=== PATIENT | female | born 1995 | race Caucasian/White ===

== ENCOUNTER 2017-08-29 12:45 | Observation (INO) ==
[2017-08-29 13:41] LABS: Bilirubin,Urine Negative (Negative); Blood,Urine Negative (Negative); Clarity,Urine Cloudy (Clear); Color,Urine Yellow (Yellow); Glucose,Urine (UA) Normal (Normal); Ketones,Urine Negative (Negative); Leukocyte Esterase,Urine Negative (Negative); Nitrite,Urine Negative (Negative); Protein,Urine Negative (Neg-Trace); Specific Gravity,Urine 1.013 (1.010-1.025); Urobilinogen,Urine Normal (Normal)
[2017-08-29 13:44] LABS: Bacteria,Urine Few per hpf (None-Few); Hyaline Casts,Urine None Seen per lpf (None-Few); RBC,Urine 0-3 per hpf (0-3); Squamous Epithelial Cell,Urine Many per lpf (None-Few); WBC,Urine 0-3 per hpf (0-3)
--- NOTE | 2017-08-29 13:46 | OB/GYN Progress Note ---
Date of Encounter: 08/29/17 Time of Encounter: 13:44 - Assessment and Plan (1) 24 weeks gestation of Current Visit: Yes Status: Acute (2) Decreased movement Current Visit: Yes Status: Acute tracing appropriate for gestational age Patient states she has felt movement since arrival in triage Patient discharged home with labor and when to return to triage precautions Qualifiers: Fetus number: single or unspecified fetus Trimester: second trimester Qualified Code(s): O36.8120 - Decreased movements, second trimester, not applicable or unspecified Subjective - Subjective Interval history: 24+ weeks gestation presented to triage for decreased movement. Patient states she has not felt the baby move a lot today, had heart tones on on Doppler at home, but remained concerned about no movement so presented to triage for evaluation. Patient with known thick anterior placenta Antepartum ROS: no loss of fluid, no vaginal bleeding, no movement normal , no contractions Objective - Vital Signs Vital Signs: Intake and Output 08/28/17 08/29/17 08/29/17 23:59 07:59 15:59 Other: Weight 74.9 kg Patient Weight 08/29/17 23:59 Weight 74.9 kg - Exam FHR: auscultation normal FHR comments: baseline 145 and appropriate for gestational age. Auscultation: bilateral: normal Abdomen: Present: normal appearance, soft, gravid Comments: - cva tenderness.
[2017-08-29 14:01] LABS: Amphetamine Screen,Urine Negative ng/mL (Cutoff=1000); Barbiturate Screen,Urine Negative ng/mL (Cutoff=200); Benzodiazepines Screen,Urine Negative ng/mL (Cutoff=200); Cannabinoid Screen,Urine Negative ng/mL (Cutoff = 50); Cocaine Screen,Urine Negative ng/mL (Cutoff= 300); Opiate Screen,Urine Negative ng/mL (Cutoff=300); Phencyclidine Screen,Urine Negative ng/mL (Cutoff=25)
== END 2017-08-29 13:54 | disposition home or self-care (01) ==
LOC: 1NENULAB
PROVIDERS: ADMIT Obstetrics & Gynecology; ATTEND Obstetrics & Gynecology

== ENCOUNTER 2017-12-11 08:00 | Inpatient (IN) ==
[2017-12-11] MEDS ORDERED: Ondansetron 4 MG/2 ML VIAL IVP PRN (10:48)
[2017-12-11] MEDS ORDERED: Famotidine 20 MG/2 ML VIAL IVP PRN (10:48)
[2017-12-11] MEDS ORDERED: Naloxone 0.4 MG/ML INJ IVP PRN (10:48)
[2017-12-11] MEDS ORDERED: *HR* Nalbuphine 10 MG/ML AMPUL IVP PRN (10:48)
--- NOTE | 2017-12-11 11:02 | OB/GYN History & Physical ---
Date of Encounter: 12/11/17 Time of Encounter: 11:00 Assessment and Plan (1) and not yet delivered in third trimester Current visit: Yes Status: Acute (2) 39 weeks gestation of Current visit: Yes Status: Acute (3) Abnormal placenta affecting management of mother in third trimester Current visit: Yes Status: Acute (4) Decreased movement affecting management of mother, antepartum Current visit: Yes Status: Acute Qualifiers: Fetus number: single or unspecified fetus Qualified Code(s): O36.8190 - Decreased movements, unspecified trimester, not applicable or unspecified (5) Encounter for elective induction of labor Current visit: Yes Status: Acute Patient will be induced with a Mattson catheter and Cytotec plan is to anticipate vaginal delivery History of Present Illness HPI: Ms. Salazar is a 21 year old female 3 para 0020 at 39-0/7 weeks who presented for induction of labor secondary to term . Patient has had a relatively complicated course except for the fact she has an abnormal placenta is very thick has been followed by maternal medicine recently patient has not been able to feel the baby move pannus of multiple visits to the office and labor and delivery for NSTs patient's anxiety is becoming significantly abnormal to the point that her mother is getting concerned and its a fear that the baby is having problems. We did inform her that because of this it would be best that we discovered ahead and deliver her and have a good outcome. Patient has been having some contractions denies any leaking of fluid or vaginal bleeding. Patient is AB+, GBS negative, rubella positive, Varicella Negative. Past Med Surg Social Fam HX - Past Medical History Source: patient, old records reviewed Medical history: no medical history Psychiatric history: anxiety - Past Surgical History Additional surgical history: D&C. t&a - Social History Smoking Status: Never smoker Smokeless Tobacco Status: No Alcohol use: none Drug use: none Occupational status: employed Current living situation: Home - Independent Activity Level: Independent ambulation Recent Out of Country Travel Within the Last 8 Weeks: No Exposure or Possible Exposure to Illness During Travel: No - Family History Mother Adopted: No Living Status: Still Living Hx Family Cardiac Disorders: No Hx Family Respiratory Disorders: No Hx Family Cancer: No Hx Family GI Disorders: No Hx Family Endocrine Disorder: No Hx Family Neuromuscular Disorders: No Hx Family Neurologic Disorders: No Hx Family HEENT Disorders: No Hx Family Autoimmune Disorders: No - Additional Family History Additional family history: Family history noncontributory Obstetrical History - Pregnancies : 3 Para: 0 Term: 0 : 0 Livin Medications and Allergies Aspirin 1 tab PO DAILY 08/29/17 [History] Vit Calc,Iron,Folic [ Vitamins] 1 tab PO DAILY 08/29/17 [ History] metroNIDAZOLE [Flagyl] 500 mg PO BID 7 Days #14 tablet 09/21/17 [Rx] 3 Allergy/AdvReac Type Severity Reaction Status Date / Time Amoxicillin Allergy See Verified 09/21/17 21:29 Comments Sulfa (Sulfonamide Allergy Swelling Verified 09/21/17 21:29 Antibiotics) of Lip/Tongue/Throat Review of System OB All systems PM: reviewed and no additional remarkable complaints except as stated - Menstruation Menstruation: other (Occasional contractions or decreased movement) Exam - Constitutional Constitutional: well developed, well nourished, no acute distress, average body habitus - HEENT HEENT: EOMI, PERRL, Mucus Membranes Moist - Neck Neck exam: full ROM - Lungs Respiratory exam: CTAB - Cardiovascular Cardiovascular exam: RRR - Abdomen Abdomen: Present: bowel sounds normal, gravid ( heart tones 140s reactive occasional contractions seen) - Cervix Dilation: 2 Effacement: 80 Station: -1 (Mattson catheter placed with 25 g of Cytotec placed vaginally) Results All other labs normal. - VTE Reasons for not Prescribing Prophylaxis: Treatment not Indicated - Low risk for VTE
[2017-12-11 11:14] LABS: Basophils % 0.2 %; Eosinophils % 0.3 %; Hemoglobin 11.3 g/dL (11.5-15.4); Immature Granulocytes % 0.4 % (0-4); Lymphocytes # 1.7 K/mcL (0.6-4.6); Lymphocytes % 14.4 %; Mean Corpuscular HGB Conc 32.3 g/dL (31.6-35.5); Mean Corpuscular Hemoglobin 26.2 pg (28.0-33.3); Mean Platelet Volume 12.8 fL (9.4-12.4); Monocytes # 0.7 K/mcL (0.0-1.3); Platelet Count 224 K/mcL (140-400); Red Blood Count 4.32 M/mcL (3.82-4.97); Red Cell Distribution Width 15.6 % (11.5-14.5); Segmented Neutrophils % 78.7 %
[2017-12-11] MEDS: Ringers Solution, Lactated 1,000 ML IVC SCH ×3 (12:15→18:31)
--- NOTE | 2017-12-11 12:24 | OB Labor Progress Note ---
Date of Encounter: 12/11/17 Time of Encounter: 11:30 Labor Progress Note - Subjective Subjective: Patient's anxiety is beginning to affect issues very nervous but were able to at least keep her, this time she states the contractions at their and she is feeling the baby move - Cervix Cervix: /- Mattson catheter was placed but during the placement she was artificially ruptured and light meconium encountered. 30 mL balloon was inflated at this time. - Heart Tones Heart Tones: heart tones 140s reactive - [place]: Occasional contractions seen at this time - Plan Plan: anticipate
[2017-12-11] MEDS ORDERED: 0.9 % Sodium Chloride 1,000 ML ONE (13:25)
[2017-12-11] MEDS ORDERED: Oxytocin 20 units/ LR 1000 mL 20 UNIT/1,000 ML BAG IVC SCH (13:30)
--- NOTE | 2017-12-11 13:34 | OB Labor Progress Note ---
Date of Encounter: 12/11/17 Time of Encounter: 13:28 Labor Progress Note - Subjective Subjective: Called to evaluate patient for possible breech presentation due to thick meconium noted on the perineum bedside ultrasound does confirm vertex presentation. Mattson catheter is now out. - Cervix Cervix: 4/90/-1 - Heart Tones Heart Tones: heart tones 140s reactive - [place]: IUPC placed contractions every 7-10 min - Plan Plan: We will start an amnioinfusion 300 mL bolus followed by 125 per hour and will start Pitocin per protocol. Plan is to anticipate vaginal delivery we will give patient an epidural
[2017-12-11 14:36] LABS: Amphetamine Screen,Urine Negative ng/mL (Cutoff=1000); Barbiturate Screen,Urine Negative ng/mL (Cutoff=200); Benzodiazepines Screen,Urine Negative ng/mL (Cutoff=200); Cannabinoid Screen,Urine Negative ng/mL (Cutoff = 50); Cocaine Screen,Urine Negative ng/mL (Cutoff= 300); Opiate Screen,Urine Negative ng/mL (Cutoff=300); Phencyclidine Screen,Urine Negative ng/mL (Cutoff=25)
[2017-12-11] MEDS ORDERED: EPHEDrine 50 MG/ML VIAL IVP PRN (16:08)
[2017-12-11] MEDS ORDERED: Ringers Solution, Lactated 500 ML IVC ONE (16:08)
[2017-12-11] MEDS ORDERED: Epidural Premix (fent/bupiv) 110 ML EP SCH (16:15)
[2017-12-11] MEDS ORDERED: Lidocaine -MPF 1% 5 ML AMPUL ONE (16:57)
--- NOTE | 2017-12-11 17:41 | Anesthesia Evaluation PreOp ---
Date of Encounter: 12/11/17 Time of Encounter: 17:40 - Past History Planned Operation: YOSELYN Cardiac History: Denies any Significant Hx Pulmonary History: Denies Any Significant HX BUSINESS ADVISOR History: Denies Any Significant HX Other Medical History: Denies Any Significant HX Anesthesia History: No Prior Anesthetic Complications : Yes Alcohol Use: none Drug use: none Medications and Allergies Vit Calc,Iron,Folic [ Vitamins] 1 tab PO DAILY 08/29/17 [ History] 3 Allergy/AdvReac Type Severity Reaction Status Date / Time Amoxicillin Allergy See Verified 09/21/17 21:29 Comments Sulfa (Sulfonamide Allergy Swelling Verified 09/21/17 21:29 Antibiotics) of Lip/Tongue/Throat - Meds/Allergy Pre-op Review Medications Reviewed: Yes Allergies Reviewed: Yes Beta Blockers on Current Med List: No Anesthesia Results - Labs 12/11/17 10:45 Anesthesia Exam O2 Sat Height 1.68 m Height 1.68 m Weight 83.007 kg Weight 84.1 kg NPO (# of Hours): 6 Pain Scale: 10 Pain Scale Used: Numeric (1 - 10) - HEENT Pupil (Motor): Pupils equal Mallampati: II Teeth: Normal Oral Opening: Greater than 3 - BUSINESS ADVISOR LOC: Oriented BUSINESS ADVISOR Motor: Normal RUE, Normal LUE, Normal RLE, Normal LLE, Normal Face BUSINESS ADVISOR Sensory: Normal: RUE, LUE, RLE, LLE, Face - Cardiac Rhythm: Regular Murmur: None JVD: No Carotid Bruit: No - Pulmonary Breath Sounds: bilateral Clear Respiratory Effort: Symmetrical Anesthesia Assess/Plan ASA Score: 2 Modified [place] Scale for Level of Consciousness: Cooperative, oriented, and tranquil Anesthetic Plan: General (plan b), Regional (plan a) Autologous Blood: Yes Monitoring Plan: Standard Monitors
--- NOTE | 2017-12-11 17:42 | Anesthesia Procedures ---
Date of Encounter: 12/11/17 Time of Encounter: 17:41 Procedures: Anesthesia - Epidural/Spinal Patient ID/Chart reviewed: Yes Patient examined: Yes OB Eval: Gestational age: 39 OB Eval: : 3 OB Eval: Hx Para: 0 OB Eval: Dilated at (cm): 4 OB Eval: Contractions: Non-stressed pattern Consent Obtained: Yes Supplemental Oxygen: None/Room Air Site Prep: Aseptic Technique, Sterile prep and drape, Povidone-Iodine 1% Patient position: upright Local Anesthetic: Lidocaine 1% Amount of Local Anesthetic used: 3 Touhy Needle Gauge: 18 Touhy Needle Depth (cm): 10 Catheter Depth at Skin (cm): 20 Test Dose (1.5% Lido + Epi): Volume given (mls): 5 Test Dose Result: Negative Loading Dose: Other: 10mls of epidural pharm bag premix solution Loading Dose Administered: Thru Catheter Infusion Med: 0.125% Bupivacaine w/ 2 mcg/ml Fentanyl Infusion Rate (mls/hr): 16 ([id number] [id number]) Catheter Secured in Place: Tegaderm, Tape Interspace Used: L4-L5 Loss of Resistance (MARGIE): Yes Blood: No CSF: No Paresthesia: No Procedure: pt tolerated procedure well. no complications. vss. fhr stable. see nursing notes for complete vitals.
--- NOTE | 2017-12-11 18:26 | OB Labor Progress Note ---
Date of Encounter: 12/11/17 Time of Encounter: 18:24 Labor Progress Note - Subjective Subjective: Patient very comfortable now since her epidural. - Cervix Cervix: 5/90/-1 - Heart Tones Heart Tones: heart tones 140s reactive - [place]: Contractions every 3-4 minutes still irregular continue to increase the Pitocin - Plan Plan: Continue current care. Increased Pitocin per protocol and anticipate vaginal delivery
--- NOTE | 2017-12-11 20:10 | OB Labor Progress Note ---
Date of Encounter: 12/11/17 Time of Encounter: 20:09 Labor Progress Note - Subjective Subjective: Patient beginning to feel pressure early decelerations noted - Cervix Cervix: 9/100/+1 - Heart Tones Heart Tones: heart tones 140s reactive - [place]: Contractions every 2 minutes adequate greater than 240 [place] units - Plan Plan: Continue current care and anticipate vaginal delivery
--- NOTE | 2017-12-11 23:52 | OB/GYN Procedure Note ---
Delivery - Delivery Date: 12/11/17 Provider: Nikolay Sethi Intrapartum events: meconium Delivery induction: AROM, oxytocin, richardson Delivery augmentation: pitocin Delivery monitor: external FHT, external uterine, internal uterine Anesthesia: local, epidural Quantitated Blood Loss: 200 - (s) A Delivery Date: 12/11/17 Delivery Time: 23:20 Presentation: vertex Position: OA Route of delivery: Gender: Female Viability: Viable Pounds: 7 Ounces: 4 Weight Gram: 3.275 kg at 1 minute: 8 at 5 mins: 9 Shoulder Dystocia: not encountered Specimens collected: cord blood Placenta: spontaneous Cord: 3 umbilical vessels - Repair Episiotomy: none Laceration Description: Periurethral, Perineal - 1st Degree - Complications Delivery complications: none Delivery comments: Patient is a 21-year-old 3 para 0020 at 39-0/7 weeks reporting for induction of labor secondary to term with favorable cervix. The patient had a abnormal placenta which was thicker than usual and has been followed by maternal medicine over the past couple weeks patient has been not getting good movement and having multiple visits to the office and to labor and delivery for NSTs patient has an anxiety disorder and this decreased movement has been making patient anxiety significantly worse to the point she is not sleeping and thinks the baby is . We did advise her once she got to 39 weeks because her symptoms are worsening would go ahead and just induce her and get the baby out from her patient did get a Richardson catheter during the insertion we did artificial rupture membranes meconium was identified. The Richardson catheter stayed in for approximately 3 hours when it fell out she was 4 cm Pitocin was then started and an epidural was placed she did have very thick meconium IUPC was placed and amnioinfusion started. Patient did well got to complete she pushed for a total of approximately 2 hours delivering a viable female infant in occiput anterior presentation at 2320. There was no nuchal cord, no meconium, the infant was bulb suctioned on the abdomen. Apgars were 8 at 1 minute, 9 at 5, weight was 7 lbs. 4 oz. Placenta was then delivered spontaneously with a three-vessel cord, earth science professor Dr Sethi, anesthesia epidural local, estimated blood loss 200 mL. Patient had a left periurethral and first-degree perineal which was repaired with 3-0 Monocryl in usual fashion. Cervix and vagina was visualized intact. Patient tolerated the delivery well she will be observed 2 hours before being taken to the floor. - Disposition Mom disposition: stable in LDR disposition: stable in LDR
[2017-12-12] MEDS ORDERED: Measles/Mumps/Rubella Vacc 0.5 ML VIAL SQ PRN (02:16)
[2017-12-12] MEDS ORDERED: Oxytocin 20 units/ LR 1000 mL 20 UNIT/1,000 ML BAG IVC SCH (02:16)
[2017-12-12] MEDS ORDERED: Acetaminophen 325 MG TABLET PO PRN (02:16)
[2017-12-12] MEDS ORDERED: Ibuprofen 600 MG TABLET PO PRN (02:16)
[2017-12-12 06:46] LABS: Basophils % 0.1 %; Eosinophils % 0.1 %; Hematocrit 31.3 % (35.3-44.9); Hemoglobin 10.2 g/dL (11.5-15.4); Immature Granulocytes % 0.4 % (0-4); Lymphocytes # 1.9 K/mcL (0.6-4.6); Mean Corpuscular HGB Conc 32.6 g/dL (31.6-35.5); Mean Corpuscular Hemoglobin 26.5 pg (28.0-33.3); Mean Corpuscular Volume 81.3 fL (83.0-100.0); Mean Platelet Volume 12.4 fL (9.4-12.4); Monocytes # 1.1 K/mcL (0.0-1.3); Monocytes % 6.8 %; Neutrophils # 12.8 K/mcL (1.6-8.9); Platelet Count 192 K/mcL (140-400); Red Blood Count 3.85 M/mcL (3.82-4.97); Red Cell Distribution Width 15.9 % (11.5-14.5); Segmented Neutrophils % 80.6 %
[2017-12-12] MEDS ORDERED: NON-FORMULARY MEDICATION 1 EACH EACH (Prenatal Vit Calc,Iron,Folic [Prenatal Vitamins] 1 T PO SCH (09:00)
[2017-12-12] MEDS: Prenatal Vit/FA 1 EACH TABLET PO SCH (10:09)
--- NOTE | 2017-12-12 11:29 | OB/GYN Progress Note ---
Date of Encounter: 12/12/17 Time of Encounter: 11:27 - Assessment and Plan (1) Vaginal delivery Current Visit: Yes Status: Acute Continue routine care Ice to perineum when necessary Sitz baths when necessary Dermoblast to perineum when necessary Anticipate discharge to home tomorrow (2) Breast feeding status of mother Current Visit: Yes Status: Acute consult Subjective - Subjective Principal diagnosis: s/p vaginal delivery Interval history: Feeling well. Out of bed without dizziness. Some perineal discomfort-using ice pack. Cramping minimal, using ibuprofen. Breast-feeding every 2-3 hours. Some nipple soreness. Voiding without difficulty. Passing flatus, no BM yet. Tolerating regular diet. Patient reports: appetite normal, voiding normally, pain well controlled, ambulating normally [place]: doing well, nursing well Objective - Latest Vital Signs Latest vital signs: Vital Signs Temp Pulse Resp BP Pulse Ox 12/12/17 07:30 98.1 F 81 16 105/69 12/12/17 03:55 98.0 F 79 16 118/66 98 12/12/17 02:55 98.4 F 81 18 107/62 97 12/12/17 01:55 98.2 F 78 18 110/63 98 Intake and Output 12/11/17 12/12/17 12/12/17 23:59 07:59 15:59 Intake Total 1000 / 1000 120 / 120 Output Total 900 / 900 200 / 200 Balance 100 / 100 -200 / -200 120 / 120 Intake: IV Fluids 1000 / 1000 Lactated Ringers 1,000 ML @ 125 1000 / 1000 mls/hr IVC .Q8H [facility] Rx#: [id number] Oral 120 / 120 Output: Urine 200 / 200 Catheter 900 / 900 Other: Meal Breakfast Percent of Meal Consumed 90% - Exam Lungs: bilateral: normal Chest: Normal S1, Normal S2 Extremities: Present: normal Abdomen: Present: normal appearance, soft Uterus: Present: normal, firm Uterus Position: At Umbilicus, Midline - Labs Labs: Laboratory Results - last 24 hr 12/11/17 12/12/17 10:45 06:33 WBC 15.8 H RBC 3.85 Hgb 10.2 L Hct 31.3 L MCV 81.3 L MCH 26.5 L MCHC 32.6 RDW 15.9 H Plt Count 192 MPV 12.4 Immature Gran % 0.4 Seg Neutrophils % 80.6 Lymphocytes % 12.0 Monocytes % 6.8 Eosinophils % 0.1 Basophils % 0.1 Neutrophils # 12.8 H Lymphocytes # 1.9 Monocytes # 1.1 Eosinophils # 0.0 Basophils # 0.0 Urine Opiates Screen Negative Ur Barbiturates Screen Negative Ur Phencyclidine Scrn Negative Ur Amphetamines Screen Negative U Benzodiazepines Scrn Negative Urine Cocaine Screen Negative U Marijuana (THC) Screen Negative
[2017-12-13] MEDS: Prenatal Vit/FA 1 EACH TABLET PO SCH (07:32)
[2017-12-13 08:00] VITALS: BP 110/67
--- NOTE | 2017-12-13 10:26 | Discharge Summary ---
Date of Encounter: 12/13/17 Time of Encounter: 10:23 - Discharge Diagnosis (1) Vaginal delivery Priority: Primary Status: Acute Comments: Stable, meeting all pp milestones, , pain well managed on po pain medication, desires discharge. - Discharge Medications Prescriptions: Ibuprofen [Motrin] 600 mg PO Q6HR PRN #60 tablet PRN Reason: Cramping Docusate [Colace] 100 mg PO BID #60 capsule Ferrous Sulfate 325 mg PO DAILY #60 tablet Home Medications: Vit Calc,Iron,Folic [ Vitamins] 1 tab PO DAILY 08/29/17 [ History] Acetaminophen [Tylenol] 650 mg PO Q6HR PRN tablet 12/13/17 [Rx] Breast Pump [BREAST PUMP] 1 each .ROUTE AD #1 each 12/13/17 [Rx] Docusate [Colace] 100 mg PO BID #60 capsule 12/13/17 [Rx] Ferrous Sulfate 325 mg PO DAILY #60 tablet 12/13/17 [Rx] Ibuprofen [Motrin] 600 mg PO Q6HR PRN #60 tablet 12/13/17 [Rx] Vit/FA 1 each PO DAILY tablet 12/13/17 [Rx] Allergies/Adverse Reactions: 3 Allergy/AdvReac Type Severity Reaction Status Date / Time Amoxicillin Allergy See Verified 09/21/17 21:29 Comments Sulfa (Sulfonamide Allergy Swelling Verified 09/21/17 21:29 Antibiotics) of Lip/Tongue/Throat Data Procedures and tests throughout hospitalization: Laboratory Tests 12/11/17 12/11/17 12/12/17 10:45 10:45 06:33 WBC 11.5 H 15.8 H RBC 4.32 3.85 Hgb 11.3 L 10.2 L Hct 35.0 L 31.3 L MCV 81.0 L 81.3 L MCH 26.2 L 26.5 L MCHC 32.3 32.6 RDW 15.6 H 15.9 H Plt Count 224 192 MPV 12.8 H 12.4 Immature Gran % 0.4 0.4 Seg Neutrophils % 78.7 80.6 Lymphocytes % 14.4 12.0 Monocytes % 6.0 6.8 Eosinophils % 0.3 0.1 Basophils % 0.2 0.1 Neutrophils # 9.0 H 12.8 H Lymphocytes # 1.7 1.9 Monocytes # 0.7 1.1 Eosinophils # 0.0 0.0 Basophils # 0.0 0.0 Urine Opiates Screen Negative Ur Barbiturates Screen Negative Ur Phencyclidine Scrn Negative Ur Amphetamines Screen Negative U Benzodiazepines Scrn Negative Urine Cocaine Screen Negative U Marijuana (THC) Screen Negative Ur Drug Screen Interp See Below Date of admission: 12/11/17 09:55 Primary care physician: PCP ROVERTO Consults: 12/12/17 02:16 Consult to Chief Business Officer [CONS] Routine Comment: Vaginal delivery, consult needed Discharging clinician: Ele Christensen Anticipated date of discharge: 12/13/17 - Patient Status Disposition: Home, Self-Care Condition: Good Functional capacity at discharge: independent ambulation Overall status at discharge: patient is back to baseline - Discharge Instructions Follow Up With: NONE,PCP [Primary Care Provider] - - Diet and Activity Activity: resume usual activities as tolerated Diet: regular diet Hospital Course Reason for admission: induction of labor, IUP at term Delivery: Episiotomy: none Laceration: 1st degree Other procedures: none complications: none Discharge diagnosis: IUP at term delivered baby: female Hospital course: Delivery - Delivery Date: 12/11/17 Provider: Nikolay Sethi Intrapartum events: meconium Delivery induction: AROM, oxytocin, richardson Delivery augmentation: pitocin Delivery monitor: external FHT, external uterine, internal uterine Anesthesia: local, epidural Quantitated Blood Loss: 200 - Infant (s) A Infant Delivery Date: 12/11/17 Infant Delivery Time: 23:20 Presentation: vertex Position: OA Route of delivery: Gender: Female Viability: Viable Pounds: 7 Ounces: 4 Weight Gram: 3.275 kg at 1 minute: 8 at 5 mins: 9 Shoulder Dystocia: not encountered Specimens collected: cord blood Placenta: spontaneous Cord: 3 umbilical vessels - Repair Episiotomy: none Laceration Description: Periurethral, Perineal - 1st Degree - Complications Delivery complications: none Delivery comments: Patient is a 21-year-old 3 para 0020 at 39-0/7 weeks reporting for induction of labor secondary to term with favorable cervix. The patient had a abnormal placenta which was thicker than usual and has been followed by maternal medicine over the past couple weeks patient has been not getting good movement and having multiple visits to the office and to labor and delivery for NSTs patient has an anxiety disorder and this decreased movement has been making patient anxiety significantly worse to the point she is not sleeping and thinks the baby is . We did advise her once she got to 39 weeks because her symptoms are worsening would go ahead and just induce her and get the baby out from her patient did get a Richardson catheter during the insertion we did artificial rupture membranes meconium was identified. The Richardson catheter stayed in for approximately 3 hours when it fell out she was 4 cm Pitocin was then started and an epidural was placed she did have very thick meconium IUPC was placed and amnioinfusion started. Patient did well got to complete she pushed for a total of approximately 2 hours delivering a viable female in occiput anterior presentation at 2320. There was no nuchal cord, no meconium, the infant was bulb suctioned on the abdomen. Apgars were 8 at 1 minute, 9 at 5, weight was 7 lbs. 4 oz. Placenta was then delivered spontaneously with a three-vessel cord, treatment technician Dr Sethi, anesthesia epidural local, estimated blood loss 200 mL. Patient had a left periurethral and first-degree perineal which was repaired with 3-0 Monocryl in usual fashion. Cervix and vagina was visualized intact. Patient tolerated the delivery well she will be observed 2 hours before being taken to the floor. - Disposition Mom disposition: stable in PP and appropriate for discharge Time Attestation: Total time spent providing and/or coordinating discharge services: Time Spent: Less than 30 minutes Exam - Constitutional Vitals: Temp Pulse Resp BP Pulse Ox 97.6 F 97 18 110/67 98 12/13/17 07:59 12/13/17 07:59 12/13/17 07:59 12/13/17 07:59 12/13/17 07:59 General appearance IM: A&O X 3 - Respiratory Respiratory exam: Present: CTAB - Cardiovascular Cardiovascular exam IM: Present: RRR - GI/Abdominal GI/Abdominal exam IM: soft - Uterine Tone: Firm Uterus Position: At Umbilicus - Extremities Exam Extremities exam IM: Present: normal capillary refill, normal inspection - Neurological Exam Neurological exam: normal gait, oriented X3 - Psychiatric Additional comments: Reports good mood
== END 2017-12-13 11:57 | disposition home or self-care (01) | DRG 775 ==
LOC: 1NENULAB 09:55 → 1NENUOBS 12-12 06:01
PROVIDERS: ADMIT Obstetrics & Gynecology; ATTEND Obstetrics & Gynecology